=== PATIENT | male | born 1970 | race Caucasian/White ===

== ENCOUNTER 2016-11-09 02:25 | Emergency (ER) | payer SELFPAY ==
[~2016-11-09] VITALS: Ht 172.7 cm; Wt 63.5 kg
[2016-11-09] MEDS ORDERED: VALACYCLOVIR1000 MG ORAL (02:49)
[2016-11-09] MEDS ORDERED: BENADRYL25 M3 PO (02:49)
[2016-11-09 02:54] VITALS: BP 127/82
[2016-11-09 03:14] VITALS: BP 132/85
--- NOTE | 2016-11-09 04:58 | Emergency Room Report ---
History of Present Illness General Chief Complaint: General Complaint Source: Patient Present Illness HPI [id number] sent by EMS from hotel for "the pox." Patient endorses 1 week of whole body covered with various stages of vesicles that ultimately rupture, very itchy. Doesnt recall having chicken pox as a kid. Pox lesions on arms, legs, torso, back, face, neck. Denies fever/chills, chest pain, SOB, abd pain. Allergies: Coded Allergies: No Known Allergies (Unverified , 11/09/16) Patient History Past Medical History: none Past Surgical History: none Pertinent Family History: none Social History: Denies: alcohol use, drug use, smoking Immunizations: UTD Reviewed Nursing Documentation: PMH: Agreed, PSxH: Agreed Nursing Documentation-PMH Past Medical History: No Stated History Review of Systems All Other Systems: negative except mentioned in HPI Physical Exam Vital Signs Date Time Temp Pulse Resp B/P Pulse Ox O2 Delivery O2 Flow Rate FiO2 11/09/16 02:54 98.2 81 20 127/82 99 Room Air Sp02 EP Interpretation: reviewed, normal General Appearance: normal inspection, well appearing, no apparent distress, alert Head: atraumatic ENT: normal ENT inspection, hearing grossly normal, normal voice Neck: normal inspection, full range of motion, supple, no bony tend Respiratory: normal inspection, lungs clear, normal breath sounds, no respiratory distress, no retraction, no wheezing Cardiovascular #1: regular rate, rhythm, no edema Gastrointestinal: normal inspection, normal bowel sounds, non tender, soft, no guarding, no hernia Genitourinary: no CVA tenderness Musculoskeletal: normal inspection, back normal, normal range of motion, Rodrigo' s Sign negative Neurologic: normal inspection, alert, oriented x3, responsive, petroleum sampler III-XII nml as tested, speech normal Psychiatric: normal inspection, judgement/insight normal, mood/affect normal Skin: normal inspection, other - Entire surface area of body with vesicles in various life cycle stage - from erythematous papules to vesicles, to crusted over vesicles Lymphatic: normal inspection Medical Decision Making Diagnostic Impression: Primary Impression: Chicken pox Qualified Codes: B01.9 - Varicella without complication ER Course Uncomplicated chicken pox - vesicles in various stages - Normal mental status. No clinical PNA - Given Rx Acyclovir and benadruyl - Advised to avoid children, women contact PMD followup DC home Last Vital Signs Date Time Temp Pulse Resp B/P Pulse Ox O2 Delivery O2 Flow Rate FiO2 11/09/16 03:15 98.2 20 127/82 99 Room Air 11/09/16 03:14 76 Status: improved Disposition: HOME, SELF-CARE Condition: Improved Scripts Diphenhydramine HCl (Benadryl) 25 Mg Capsule 25 MG PO TID for Itching for 7 Days, #30 CAP Prov: NINOSKA FITZGERALD M.D. 11/09/16 Valacyclovir Hcl (VALACYCLOVIR) 1,000 Mg Tablet 1000 MG ORAL TID for 10 Days, #29 TAB Prov: NINOSKA FITZGERALD M.D. 11/09/16 Referrals: NOT CHOSEN IPA/,REFERRING (PCP) Patient Instructions: Chickenpox, Adult Additional Instructions: - Take ALL the valacyclovir - three times a day - for next 10 days - BEnadryl as needed for itch - Avoid children, women NINOSKA FITZGERALD M.D. Nov 09, 2016 04:58
== END 2016-11-09 03:15 | disposition home or self-care (01) ==
LOC: EDBD 02:25 → EMR 03:01
DX: B01.9 Varicella without complication (principal)
CPT/HCPCS: 99284

== ENCOUNTER 2017-09-25 19:26 | Emergency (ER) | payer MEDICAID ==
[~2017-09-25] VITALS: Ht 172.7 cm; Wt 72.6 kg
[~2017-09-25 19:26] MED LIST: BENADRYL25 M3 PO; NKM; VALACYCLOVIR1000 MG ORAL
--- NOTE | 2017-09-25 20:14 | Emergency Room Report ---
History of Present Illness General Chief Complaint: Behavioral Complaint Source: Patient (Manish Dove) Present Illness HPI 46-year-old male patient presents ER brought in by ambulance for behavioral complaint. Reports that patient was running through the streets. Patient reports that he has been homeless for one night, states that he has been staying in a hotel for the past 3 weeks and prior to that living with some friends. States that he could not continue this friends because they are becoming problematic and he was frustrated by the lights and colors and sounds they were causing. Reports history of schizophrenia, states he hears voices. States that he was diagnosed one year ago, states that he does not take any medication for schizophrenia, states she was never put on any medication, states his doctor told him he "didn't need it". (Manish Dove) Allergies: Coded Allergies: No Known Allergies (Unverified , 11/09/16) Patient History Reviewed Nursing Documentation: PMH: Agreed; PSxH: Agreed (Manish Dove) Nursing Documentation-PMH Past Medical History: No History, Except For History Of Psychiatric Problem: Yes (Manish Dove) Review of Systems All Other Systems: negative except mentioned in HPI (Manish Dove) Physical Exam Vital Signs Date Time Temp Pulse Resp B/P (MAP) Pulse Ox O2 Delivery O2 Flow Rate FiO2 09/25/17 19:18 98.3 95 18 108/68 96 Room Air 98.2 Sp02 EP Interpretation: reviewed, normal General Appearance: well appearing, no apparent distress, alert, GCS 15, non- toxic Head: normocephalic, atraumatic Eyes: bilateral eye normal inspection, bilateral eye PERRL ENT: hearing grossly normal, normal pharynx, no angioedema, normal voice, uvula midline, moist mucus membranes Neck: full range of motion Respiratory: lungs clear, normal breath sounds, no rhonchi, no respiratory distress, no accessory muscle use, no wheezing, speaking full sentences Cardiovascular #1: regular rate, rhythm, no edema Gastrointestinal: non tender, soft, no mass, non-distended, no guarding, no rebound Genitourinary: no CVA tenderness Musculoskeletal: back normal, digits/nails normal, gait/station normal, normal range of motion, non-tender Neurologic: alert, oriented x3, responsive, motor strength/tone normal, sensory intact Psychiatric: mood/affect normal Skin: no rash, other - no wrist scars Lymphatic: no adenopathy (Manish Dove) Medical Decision Making PA Attestation Dr. Brownlee is my supervising Physician whom patient management has been discussed with. (Manish Dove) Diagnostic Impression: Primary Impression: Behavioral disorder ER Course Pt. presents to the ED brought in by ambulance for behavioral complaint. Ddx considered but are not limited to anxiety, depression, drug use, alcohol use , behavioral disorder. Vital signs: are WNL, pt. is afebrile Ordered labs, urine drug screen, serum alcohol. ER COURSE: physical exam benign . patient denies taking any medications for psychiatric disorders. Reports seen many mental health providers but they all "get rid of them". states he does not want medication for anxiety or depression. Asked the patient has seen a psychiatric facility before stated yes. informed patient will provide him with information for psych facility. patient resting comfortably in bed. Patient labs unremarkable, negative drug screen, no elevation in serum alcohol level. Do not believe patient is a danger to himself or others at this time. Patient signed out to Dr. Leavitt. - Please note that this Emergency Department Report was dictated using [employer] checker technology software, occasionally this can lead to erroneous entry secondary to interpretation by the dictation equipment. Labs Test 09/25/17 20:25 White Blood Count 6.6 K/UL (4.8-10.8) Red Blood Count 4.27 M/UL (4.70-6.10) Hemoglobin 12.8 G/DL (14.2-18.0) Hematocrit 37.6 % (42.0-52.0) Mean Corpuscular Volume 88 FL (80-99) Mean Corpuscular Hemoglobin 30.0 PG (27.0-31.0) Mean Corpuscular Hemoglobin Concent 34.0 G/DL (32.0-36.0) Red Cell Distribution Width 11.6 % (11.6-14.8) Platelet Count 237 K/UL (150-450) Mean Platelet Volume 7.6 FL (6.5-10.1) Neutrophils (%) (Auto) 51.8 % (45.0-75.0) Lymphocytes (%) (Auto) 33.9 % (20.0-45.0) Monocytes (%) (Auto) 11.9 % (1.0-10.0) Eosinophils (%) (Auto) 1.2 % (0.0-3.0) Basophils (%) (Auto) 1.3 % (0.0-2.0) Sodium Level 143 MMOL/L (136-145) Potassium Level 3.7 MMOL/L (3.5-5.1) Chloride Level 106 MMOL/L (98-107) Carbon Dioxide Level 28 MMOL/L (21-32) Anion Gap 9 mmol/L (5-15) Blood Urea Nitrogen 18 mg/dL (7-18) Creatinine 1.0 MG/DL (0.55-1.30) Estimat Glomerular Filtration Rate > 60 mL/min (>60) Glucose Level 107 MG/DL (74-106) Calcium Level 9.4 MG/DL (8.5-10.1) Total Bilirubin 0.5 MG/DL (0.2-1.0) Aspartate Amino Transf (AST/SGOT) 19 U/L (15-37) Alanine Aminotransferase (ALT/SGPT) 20 U/L (12-78) Alkaline Phosphatase 56 U/L (46-116) Total Protein 7.6 G/DL (6.4-8.2) Albumin 4.1 G/DL (3.4-5.0) Globulin 3.5 g/dL Albumin/Globulin Ratio 1.2 (1.0-2.7) Salicylates Level 0.2 ug/mL (2.8-20) Urine Opiates Screen Negative (NEGATIVE) Acetaminophen Level < 2 MCG/ML (10-30) Urine Barbiturates Screen Negative (NEGATIVE) Phencyclidine (PCP) Screen Negative (NEGATIVE) Urine Amphetamines Screen Negative (NEGATIVE) Urine Benzodiazepines Screen Negative (NEGATIVE) Urine Cocaine Screen Negative (NEGATIVE) Urine Marijuana (THC) Screen Negative (NEGATIVE) Serum Alcohol < 3 mg/dL (Manish Dove.Adenike) ER Course Patient signout to me. He came in with vague symptom of depression. He claimed that he been in psychiatric evaluation with therapist in the past but they're all "disappear." I want to be on any medication. He said he is tired of dealing with people. No particular suicidal plans. His friends this kicked him out and he has no place to stay. We'll refer him to mental health. I see no criteria for 5150 at this moment in time. This patient is a chronic risk of self injury due to poor impulse control, limited coping skills, and judgment. I believe that the available clinical evidence to suggest that these characteristics derived primarily from personality disorder and are likely very stable over time. Hospitalization would likely attenuate risk of self-harm only during longterm period, without lasting risk reduction. Serious self-harm, while possible, would likely be inadvertent, and because of impulsivity, and foreseeable. For these reasons, I do not believe hospitalization would provide meaningful reduction in risk of self-harm. (TRINH LEAVITT M.D.) Last Vital Signs Date Time Temp Pulse Resp B/P (MAP) Pulse Ox O2 Delivery O2 Flow Rate FiO2 09/25/17 19:18 98.3 95 18 108/68 96 Room Air 98.2 (Manish Dove) Status: unchanged (TRINH LEAVITT M.D.) Disposition: HOME, SELF-CARE Condition: Stable Patient Instructions: Self-Destructive Behavior Additional Instructions: Call mental health for appointment within a week. Follow-up with your doctor in 2-3 days. Return if symptom worsen. Manish Dove September 25, 2017 20:14 TRINH LEAVITT M.D. September 25, 2017 21:35
[2017-09-25 20:39] LABS: BASOPHILS % (AUTO) 1.3 % (0.0-2.0); EOSINOPHILS % (AUTO) 1.2 % (0.0-3.0); HEMATOCRIT 37.6 % (42.0-52.0); HEMOGLOBIN 12.8 G/DL (14.2-18.0); LYMPHOCYTES % (AUTO) 33.9 % (20.0-45.0); MEAN CORPUSCULAR VOLUME 88 FL (80-99); MONOCYTES % (AUTO) 11.9 % (1.0-10.0); NEUTROPHILS % (AUTO) 51.8 % (45.0-75.0); PLATELET COUNT 237 K/UL (150-450); RED BLOOD COUNT 4.27 M/UL (4.70-6.10); RED CELL DISTRIBUTION WIDTH 11.6 % (11.6-14.8); WHITE BLOOD COUNT 6.6 K/UL (4.8-10.8)
[2017-09-25 20:59] LABS: ANION GAP 9 mmol/L (5-15); BLOOD UREA NITROGEN 18 mg/dL (7-18); CARBON DIOXIDE 28 MMOL/L (21-32); CHLORIDE 106 MMOL/L (98-107); POTASSIUM 3.7 MMOL/L (3.5-5.1); SODIUM 143 MMOL/L (136-145)
[2017-09-25 21:03] LABS: ALANINE AMINOTRANSFERASE 20 U/L (12-78); ALBUMIN 4.1 G/DL (3.4-5.0); ALBUMIN/GLOBULIN RATIO 1.2 (1.0-2.7); ALKALINE PHOSPHATASE 56 U/L (46-116); ASPARTATE AMINO TRANSFERASE 19 U/L (15-37); BILIRUBIN,TOTAL 0.5 MG/DL (0.2-1.0)
[2017-09-25 21:20] LABS: CALCIUM 9.4 MG/DL (8.5-10.1)
[2017-09-25 21:53] VITALS: BP 108/68
== END 2017-09-25 21:57 | disposition home or self-care (01) ==
LOC: EDBD 19:26 → EMR 19:59
DX: F91.9 Conduct disorder, unspecified (principal); F20.9 Schizophrenia, unspecified; Z59.0 Homelessness
CPT/HCPCS: 36415; 80053; 80307; 80329; 85025; 99283